=== PATIENT | female | born 1930 | race Caucasian/White ===

== ENCOUNTER 2017-06-09 20:33 | Emergency (ER) | payer MEDICARE, MEDICAID ==
[~2017-06-09] VITALS: Ht 157.5 cm; Wt 54.4 kg
[~2017-06-09 20:33] MED LIST: CLON0.1T PO; DOCU250C75 PO; FERR324T4 PO; GABA-534 PO; LAMO25TA2 PO; LORA1TAB PO; LOSA1TAB36 PO; MECL-102 PO; MULT-213 PO; NA P133E RC; POLY17PO4 PO; TRAM50TA2 PO
--- NOTE | 2017-06-09 20:33 | NUR ---
PT BB [id number] FROM HOME. PER EMS REPORT, PATIENT'S FAMILY REPORTED PT HAD BEEN EXPERIENCING SOB AND WAS ACTING MORE ALTERED THAN NORMAL. PT WAS BEING VENTILATED WITH BVM BY PARAMEDICS UPON ARRIVAL. PT IMMEDIATELY TRANSFERED TO ER BED 05; DR. MAHAN AT BEDSIDE FOR INTUBATION. CPR INITIATED.
[2017-06-09] MEDS ORDERED: ETOMIDATE 2 MG/ML VIAL IV ONE (20:35)
[2017-06-09] MEDS ORDERED: SODIUM BICARBONATE SYR 50 MEQ/50 ML DISP.SYRIN IV ONE (20:35)
[2017-06-09] MEDS ORDERED: DEXTROSE 50%-WATER 50 ML DISP.SYRIN IV ONE (20:35)
[2017-06-09] MEDS ORDERED: CALCIUM CHLORIDE 1,000 MG/10 ML DISP.SYRIN IV ONE (20:35)
[2017-06-09] MEDS ORDERED: SUCCINYLCHOLINE CHLORIDE 20 MG/ML VIAL IV ONE (20:35)
[2017-06-09] MEDS ORDERED: EPINEPHRINE (1:10,000) SYRINGE 1 MG/10 ML DISP.SYRIN IVP ONE (20:35)
--- NOTE | 2017-06-09 20:40 | NUR ---
RT pt orally intubated by Dr Velázquez w/ positive co2 color change and bilateral bs. ETT secure with tube cruz.
[2017-06-09] MEDS ORDERED: IV NS 0.9% 500 ML BAG IV ONE (21:00)
--- NOTE | 2017-06-09 21:05 | NUR ---
SEE CODE BLUE FORM
--- NOTE | 2017-06-09 21:35 | NUR ---
CALLED PT'S NEXT OF KIN, MELYSSA WHOM CONFIRMED THE PT WAS SEEN BY HER PCP, DR. DANIELS, LAST MONTH.
--- NOTE | 2017-06-09 21:56 | NUR ---
[facility] CALL[facility]; SPOKE WITH CHEMA. PT NOT CANDIDATE BASED ON AGE. CASE# [id number]
[2017-06-09 22:09] VITALS: BP 0/0
== END 2017-06-09 22:23 | disposition expired ==
LOC: ER 20:34
DX: I46.9 Cardiac arrest, cause unspecified (principal); I10 Essential (primary) hypertension; E11.9 Type 2 diabetes mellitus without complications
CPT/HCPCS: 31500; 92950 ×2; 93005; 99285; A4606; J0171; J0330; J3490 ×3; Z7610